=== PATIENT | female | born 1965 | race Caucasian/White ===

== ENCOUNTER 2020-10-05 14:26 | Outpatient (CLI) | payer OTHER | END 2020-10-05 14:27 | disposition critical access hospital (66) | LOC: EMS 14:26 | DX: Z04.1 Encounter for examination and observation following transport accident (principal); M54.5 Low back pain; R07.89 Other chest pain | CPT/HCPCS: A0425; A0429 ==

== ENCOUNTER 2020-10-05 14:58 | Emergency (ER) | payer OTHER ==
[2020-10-05] MEDS ORDERED: ONDANSETRON 4 MG/2 ML VIAL IVP STA ×2 (15:13→20:33)
[2020-10-05] MEDS ORDERED: HYDROmorphone 1 MG/ML CARPUJECT IVP STA ×3 (15:13→16:31)
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
[2020-10-05] MEDS ORDERED: IOPAMIDOL-300 100 ML VIAL ONE (15:25)
[2020-10-05 16:18] LABS: BASOPHILS # (AUTO) 0.1 10^3/uL (0.0-0.1); BASOPHILS % (AUTO) 0.4 %; EOSINOPHILS % (AUTO) 0.2 %; HGB - HEMOGLOBIN 13.4 g/dL (12.0-16.0); LYMPHOCYTES # (AUTO) 0.8 10^3/uL (1.5-3.5); LYMPHOCYTES % (AUTO) 6.2 %; MEAN CORPUSCULAR HGB CONC 32.7 g/dL (32.0-36.0); MEAN CORPUSCULAR VOLUME 91.9 fL (81.0-99.0); MEAN PLATELET VOLUME 10.5 fL (7.9-10.8); MONOCYTES # (AUTO) 0.9 10^3/uL (0.0-1.0); MONOCYTES % (AUTO) 6.6 %; NEUTROPHILS # (AUTO) 11.4 10^3/uL (1.5-6.6); NEUTROPHILS % (AUTO) 85.6 %; PLT - PLATELET COUNT 187 10^3/uL (130-450); RED BLOOD COUNT 4.46 10^6/uL (4.20-5.40); RED CELL DISTRIBUTION WIDTH 12.8 % (12.0-15.0); WHITE BLOOD COUNT 13.3 x10^3/uL (4.8-10.8)
[2020-10-05 16:26] LABS: INR 1.1 (0.8-1.2); PT - PROTHROMBIN TIME 12.6 secs (9.9-12.6)
--- NOTE | 2020-10-05 16:26 | CT Report ---
PROCEDURE: HEAD WO INDICATIONS: Head trauma, mod-severe TECHNIQUE: Noncontrast 4.5 mm thick angled axial sections acquired from the foramen magnum to the vertex. For r adiation dose reduction, the following was used: automated exposure control, adjustment of mA and/or kV according to patient size. COMPARISON: Correlation is made with the accompanying imaging, 10/05/2020. FINDINGS: Image quality: Excellent. CSF spaces: Basal cisterns are patent. No extra-axial fluid collections. Ventricles are normal in size and shape. Brain: No midline shift. No intracranial masses or hemorrhage. Isaac-white matter interface is norm al. Skull and face: Remote plate and screw fixation can be seen of the anterior maxillary sinuses, right more prominent than left. Calvarium and visualized facial bones are intact, without suspicious lesio ns. Sinuses: Visualized sinuses and mastoids are clear. IMPRESSION: No significant intracranial abnormality is seen. Reviewed by: Blayne Sánchez MD on 10/05/2020 3:25 PM AKDT Approved by: Blayne Sánchez MD on 10/05/2020 3:25 PM AKDT Station ID: [id number]
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
[2020-10-05 16:31] LABS: ALBUMIN 4.3 g/dL (3.2-5.5); ALBUMIN/GLOBULIN RATIO 1.4 (1.0-2.2); ALKALINE PHOSPHATASE 68 IU/L (42-121); ALT ALANINE AMINOTRANSFERASE 27 IU/L (10-60); AST ASPARTATE AMINOTRANSFERASE 34 IU/L (10-42); BILIRUBIN,TOTAL 1.2 mg/dL (0.2-1.0); BUN - BLOOD UREA NITROGEN 16 mg/dL (6-20); CALCIUM 9.1 mg/dL (8.5-10.3); CARBON DIOXIDE - CO2 25 mmol/L (21-32); CHLORIDE 98 mmol/L (101-111); CREATININE 0.8 mg/dL (0.4-1.0); ETOH - ETHANOL < 5.0 mg/dL; GFR - MDRD 74 (>89); GLUCOSE 107 mg/dL (70-100); LIPASE 28 U/L (22-51); POTASSIUM 3.5 mmol/L (3.5-5.0); SODIUM 134 mmol/L (135-145); TOTAL PROTEIN 7.3 g/dL (6.7-8.2)
--- NOTE | 2020-10-05 16:31 | CT Report ---
PROCEDURE: THORACIC SPINE WO INDICATIONS: back injury TECHNIQUE: Noncontrast 3 mm thick sections acquired through the region of interest in the thoracic spine. Sagit melly and coronal reformats were then constructed. For radiation dose reduction, the following was used : automated exposure control, adjustment of mA and/or kV according to patient size. COMPARISON: None. FINDINGS: Image quality: Excellent. Bones: There is an acute compression deformity seen of the superior endplate of T12, with 30% loss o f height anteriorly. 1 to 2 mm posterior displacement of fracture fragments can be seen. There is normal overall bony alignment. No suspicious sclerotic or lytic bony lesions. Central spin al canal is of normal overall caliber. Soft tissues: No paravertebral masses or hematomas. Visualized posteromedial lungs appear clear. IMPRESSION: Fracture of the superior endplate of T12, with 30% loss of height anteriorly. 1 to 2 mm posterior dis placement of fracture fragments can be seen. Reviewed by: Blayne Sánchez MD on 10/05/2020 3:30 PM HANNAH Approved by: Blayne Sánchez MD on 10/05/2020 3:30 PM AKQUETA Station ID: [id number]
--- NOTE | 2020-10-05 16:33 | CT Report ---
PROCEDURE: LUMBAR SPINE WO INDICATIONS: back injury TECHNIQUE: Noncontrast 3 mm thick sections acquired from the T12 level to the sacrum. Sagittal and coronal refo rmats were constructed. For radiation dose reduction, the following was used: automated exposure co ntrol, adjustment of mA and/or kV according to patient size. COMPARISON: None. FINDINGS: Image quality: Excellent. Bones: An acute compression deformity can be seen involving the superior endplate of the T12 level, with 30% loss of height anteriorly. There is 1 to 2 mm posterior displacement of fracture fragments. At the L3-L4 level, there is moderate to severe disc space narrowing seen, with associated endplate i rregularity and sclerosis, particularly on the left side. Vacuum disc phenomenon is seen at this lev el. Posteriorly directed endplate osteophytes are seen. Moderate bilateral neural foraminal narrow ing is seen. Moderate central canal narrowing is seen. Milder degenerative changes are seen elsewhere. There is normal bony alignment. No suspicious lytic or blastic bony lesions. No pars defects. Soft tissues: No retroperitoneal masses or hematomas. Visualized aorta is normal in caliber. IMPRESSION: Acute fracture of the superior endplate of T12, with 30% loss of height anteriorly and 1 to 2 mm post erior displacement of fracture fragments. Focal L3-L4 degenerative change. Reviewed by: Blayne Sánchez MD on 10/05/2020 3:32 PM HANNAH Approved by: Blayne Sánchez MD on 10/05/2020 3:32 PM HANNAH Station ID: [id number]
--- NOTE | 2020-10-05 16:35 | CT Report ---
PROCEDURE: CERVICAL SPINE WO INDICATIONS: Neck trauma, midline tenderness TECHNIQUE: Noncontrast 3 mm thick sections acquired from the skull base to the T4 level. Sagittal and coronal r eformats were then constructed. For radiation dose reduction, the following was used: automated exp osure control, adjustment of mA and/or kV according to patient size. COMPARISON: Correlation is made with the accompanying imaging, 10/05/2020. FINDINGS: Image quality: Excellent. Bones: No fractures or dislocations. Visualized superior ribs are intact. Focal degenerative change is seen at the C6-C7 level, with at least moderate disc space narrowing. Th ere is endplate irregularity and osteophyte formation, including posteriorly directed endplate osteop hytes. Soft tissues: Prevertebral soft tissues are normal in thickness. No paravertebral hematomas. No ap ical pneumothoraces. IMPRESSION: Negative for cervical spine fracture. Focal C6-C7 degenerative change. Reviewed by: Blayne Sánchez MD on 10/05/2020 3:33 PM AKDT Approved by: Blayne Sánchez MD on 10/05/2020 3:33 PM AKDT Station ID: [id number]
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
[2020-10-05 16:55] LABS: MUDS CUTOFF CONCENTRATIONS CUTOFF CONC BELOW:
[2020-10-05 16:57] LABS: BILIRUBIN,URINE NEGATIVE (NEGATIVE); GLUCOSE, URINE (UA) NEGATIVE (NEGATIVE); KETONES,URINE (UA) NEGATIVE (NEGATIVE); LEUKOCYTE ESTERASE, URINE NEGATIVE (NEGATIVE); NITRITE,URINE NEGATIVE (NEGATIVE); OCCULT BLOOD,URINE NEGATIVE (NEGATIVE); PROTEIN,URINE NEGATIVE (NEGATIVE); UROBILINOGEN,URINE 0.2 (NORMAL) E.U./dL (NORMAL)
[2020-10-05 16:59] LABS: CLARITY,URINE CLEAR (CLEAR)
[2020-10-05 17:08] LABS: COCAINE SCREEN URINE NEGATIVE (NEGATIVE); METHAMPHETAMINES SCREEN, URINE NEGATIVE (NEGATIVE); OPIATE SCREEN, URINE POSITIVE (NEGATIVE); THC CANNABINOID SCREEN, URINE POSITIVE (NEGATIVE)
[2020-10-05 17:09] LABS: AMPHETAMINE SCREEN,URINE NEGATIVE (NEGATIVE); BARBITURATE SCREEN,UR NEGATIVE (NEGATIVE); BENZODIAZEPINES SCREEN, URINE NEGATIVE (NEGATIVE); METHADONE SCREEN, URINE NEGATIVE (NEGATIVE); OXYCODONE SCREEN, URINE NEGATIVE (NEGATIVE); PROPOXYPHENE SCREEN, URINE NEGATIVE (NEGATIVE); TRICYCLIC ANTIDEPRESSANT,URINE NEGATIVE (NEGATIVE)
--- NOTE | 2020-10-05 17:24 | XRAY Report ---
PROCEDURE: Hips 3-4V BILAT INDICATIONS: hip pain TECHNIQUE: 3 total views of the hip were acquired, with an AP view of the pelvis and frog leg views of each hip. COMPARISON: Correlation is made with the previously performed CT of the abdomen and pelvis. FINDINGS: Bones: No fractures or dislocations. No suspicious bony lesions. The visualized pelvic ring appear s intact. Soft tissues: No suspicious soft tissue calcifications or masses. There is extreme contrast seen wi thin the bladder and within the distal left ureter. Right groin postoperative clips are seen. IMPRESSION: Negative for fracture or dislocation. Right groin postoperative clips incidentally noted. Reviewed by: Blayne Sánchez MD on 10/05/2020 4:23 PM HANNAH Approved by: Blayne Sánchez MD on 10/05/2020 4:23 PM HANNAH Station ID: [id number]
[2020-10-05] MEDS ORDERED: KETOROLAC 15 MG/ML VIAL IVP STA ×2 (17:32→20:36)
[2020-10-05] MEDS ORDERED: IOPAMIDOL-300 100 ML VIAL IVP ONE (19:40)
--- NOTE | 2020-10-05 20:42 | XRAY Report ---
PROCEDURE: Thoracic Spine 2 View INDICATIONS: upright eval per spine surgeon TECHNIQUE: 2 views of the thoracic spine were acquired. COMPARISON: Thoracic spine CT earlier today. FINDINGS: Bones: Mild T12 compression fracture. Mild scoliosis. No suspicious bony lesions. 12 pairs of ribs are noted, and appear intact where visualized. Soft tissues: No paravertebral stripe thickening. IMPRESSION: Mild T12 compression fracture. Mild scoliosis. Reviewed by: Maverick Gandara MD on 10/05/2020 8:40 PM PDT Approved by: Maverick Gandara MD on 10/05/2020 8:40 PM PDT Station ID: [id number]
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
[2020-10-05] MEDS ORDERED: oxyCODONE/ACET 5/325 Prepack 4 PO STA (21:20)
[2020-10-05] MEDS ORDERED: ONDANSETRON ODT 4 MG Prepack 2 TL PRN (21:39)
[2020-10-05 21:48] VITALS: BP 115/66
== END 2020-10-05 21:54 | disposition home or self-care (01) ==
LOC: ED 14:58
DX: S22.080A Wedge compression fracture of T11-T12 vertebra, initial encounter for closed fracture (principal); S20.219A Contusion of unspecified front wall of thorax, initial encounter; V49.40XA Driver injured in collision with unspecified motor vehicles in traffic accident, initial encounter
CPT/HCPCS: 36415; 70450; 71260; 72070; 72125; 72128; 72131; 73522; 74177; 80053; 80306; 80320; 81003; 83690; 85025; 85610; 86850; 86900; 86901; 96374; 96375; 96376; 99284; J1170; Q9967; 81001; 87086